=== PATIENT | male | born 1960 | race Caucasian/White ===

== ENCOUNTER 2016-11-07 05:49 | Emergency (ER) | payer OTHER ==
[2016-11-07 06:14] VITALS: TEMP 97.8; BMI 29.9
--- NOTE | 2016-11-07 07:55 | PDOC ---
History of Present Illness - General Chief Complaint: Lightheaded Stated Complaint: DIZZINESS,BLOOD SUGAR PROBLEM Time Seen by Provider: 11/07/16 07:16 History Source: Patient Exam Limitations: No Limitations - History of Present Illness Initial Comments: 11/07/16 08:29 61M with h/f DM2 on Glipizide , HTN on Amlodipine , hypothyroidism on levothyroxine, HCL present with nausea, light-headedness and tingling down left arm since waking up for 3am this morning. He went to work without eating breakfast and when he saw he still felt dizzy ho a worklift he decided to go to the hospital. When he checked his fingerstick blood sugar at 5am before coming in, it was 331. He also describes a tingling sensation down his left arm now just located to the tip of his middle finger, like a pins and needles sensation. He says he didn't take his glipizide yesterday but took two doses of 10mg when he saw that his blood sugar was elevated. He's hypertensive in the 150's although he claims the last time he saw Dr. Hayden , his pcp, 3 weeks ago it was normal. No chest pain, shortness of breath, diaphoresis, vertigo, palpitations blurry vision, vomiting. Past History - Past Medical History Allergies/Adverse Reactions: Allergies Allergy/AdvReac Type Severity Reaction Status Date / Time Penicillins Allergy Verified 11/07/16 08:20 Home Medications: Ambulatory Orders Amlodipine Besylate 5 mg PO HS 11/07/16 Atorvastatin Ca [Lipitor] 20 mg PO HS 11/07/16 Gabapentin 600 mg PO DAILY 11/07/16 Glipizide 10 mg PO BID 11/07/16 Diabetes: Yes HTN: Yes Hypercholesterolemia: Yes - Psycho/Social/Smoking Cessation Hx Suicidal Ideation: No Smoking History: Never smoked Have you smoked in the past 12 months: No Information on smoking cessation initiated: No Hx Alcohol Use: No Drug/Substance Use Hx: No Review of Systems - Review of Systems Constitutional: Yes: Symptoms Reported, See HPI HEENTM: No: Symptoms Reported Respiratory: No: Symptoms reported Cardiac (ROS): No: Symptoms Reported ABD/GI: No: Symptoms Reported : No: Symptoms Reported Musculoskeletal: Yes: Muscle Pain ("in the back for a couple days") Neurological: Yes: Symptoms reported, See HPI *Physical Exam - Vital Signs Last Vital Signs Temp Pulse Resp BP Pulse Ox 97.8 F 65 16 155/97 100 11/07/16 06:12 11/07/16 06:12 11/07/16 06:12 11/07/16 06:12 11/07/16 06:12 - Physical Exam General Appearance: Yes: Nourished, Appropriately Dressed. No: Apparent Distress HEENT: positive: EOMI, PIPER Neck: positive: Trachea midline, Normal Thyroid, Supple. negative: Tender Respiratory/Chest: positive: Lungs Clear, Normal Breath Sounds. negative: Chest Tender, Respiratory Distress Cardiovascular: positive: Regular Rhythm, Regular Rate, S1, S2 Vascular Pulses: Carotid (R): 2+, Carotid (L): 2+, Dorsalis-Pedis (R): 2+, Doralis-Pedis (L): 2+ Gastrointestinal/Abdominal: positive: Normal Bowel Sounds, Soft. negative: Tender Extremity: positive: Normal Capillary Refill, Normal Inspection. negative: Pedal Edema Integumentary: positive: Normal Color, Warm, Other (Facial Rosacea). negative: Jaundice, Cold, Clammy Neurologic: positive: porcelain waxer II-XII NML intact, Fully Oriented, Alert, Normal Mood/ Affect, Normal Response, Motor Strength 5/5 ED Treatment Course - LABORATORY CBC & Chemistry Diagram: 11/07/16 08:18 11/07/16 08:18 Medical Decision Making - Medical Decision Making 11/07/16 09:05 56M with pmh of DM2, HTN and HCL presenting with light-headedness, nausea and LUE tingling. EKG: normal CBC, CMP: pending Cardiac enzymes pending UA pending. r/o: cardiac event 11/07/16 11:38 [id number], tsh:4.35 UA + for ketones and glucose Patient given 1L bolus NS 11/07/16 12:27 Repeat glucose after fluids:221 Waiting for second set of troponins. 11/07/16 14:37 Second set of troponins negative. 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 Patient agreed. *DC/Admit/Observation/Transfer Diagnosis at time of Disposition: Hyperglycemia, Hypothyroid neuropathy - Discharge Dispostion Condition at time of disposition: Improved - Referrals Referrals: Marcial Hayden [Primary Care Provider] - Mera Santiago [Non Staff, Medical] - - Patient Instructions Printed Discharge Instructions: Sugar-Sweetened Fruit Drinks Linked to Increased Chance of Type 2 Diabetes , Lifestyle Changes as Effective as Drugs in Preventing Progression to Diabet, Complications of Type 2 Diabetes Print Language: [email or web address] - Post Discharge Activity Work/School Note: Back to Work
[2016-11-07 08:30] LABS: BASOPHIL 0.7 % (0-2.0); EOSINOPHIL 0.6 % (0-4.5); MCHC 33.9 g/dl (32.0-35.9); MEAN CELL VOLUME 82.7 fl (80-96); MEAN PLT VOLUME 8.1 fl (7.5-11.1); NEUTROPHILS 76.2 % (42.8-82.8); PLATELET COUNT 262 K/MM3 (134-434); RDW 13.7 % (11.9-15.9); WHITE BLOOD COUNT 8.9 K/mm3 (4.0-10.0)
[2016-11-07 09:00] LABS: ALBUMIN 3.6 g/dl (3.4-5.0); ANION GAP 8 (8-16); BILIRUBIN,TOTAL 0.5 mg/dL (0.2-1.0); CALCIUM 9.1 mg/dL (8.5-10.1); CO2 26 mmol/L (21-32); CREATININE 0.8 mg/dL (0.7-1.3); SGOT/AST 11 U/L (15-37); SGPT/ALT 21 U/L (12-78)
[2016-11-07 09:01] LABS: URINE APPEARANCE CLEAR; URINE BILIRUBIN NEGATIVE (NEGATIVE); URINE BLOOD NEGATIVE (NEGATIVE); URINE COLOR LTYELLOW; URINE GLUCOSE (UA) 3+ (NEGATIVE); URINE KETONE 1+ (NEGATIVE); URINE LEUK ESTERASE NEGATIVE (NEGATIVE); URINE NITRITE NEGATIVE (NEGATIVE); URINE PROTEIN NEGATIVE (NEGATIVE); URINE UROBILINOGEN NEGATIVE mg/dL (0.2-1.0)
[2016-11-07 09:08] LABS: ALK PHOS 124 U/L (45-117); THYROID STIMULATING HORMONE 4.35 uIU/ml (0.358-3.74)
--- NOTE | 2016-11-07 09:40 | PDOC ---
Attending Attestation - Resident Resident Name: Zain Alvarado - ED Attending Attestation I have performed the following: I have examined & evaluated the patient, The case was reviewed & discussed with the resident, I agree w/resident's findings & plan, Exceptions are as noted - HPI HPI: 11/07/16 10:01 The patient is a 56 year old male, with a significant past medical history of DM , HTN, and high cholesterol, who presents to the emergency department with dizziness since 3am this morning. The patient reports waking up this morning feeling lightheaded. Denies room-spinning sensation. He reports as the morning progressed his dizziness worsened. He relates while at work having sensations of fainting, but denies any LOC since the onset of his symptoms. Upon ED arrival he reports his symptoms have mostly resolved and denies any complaints of significant pain. He also notes during his dizziness episode having a blood sugar of 331, after having a finger stick reading at home. He also reports a "tingling" sensation in his left arm and both feet but denies any numbness or weakness in any extremity. Pt states that his blood sugars have been poorly controlled recently. He admits to not checking his sugar regularly. The last time it was checked before today was 2 weeks ago, when it was in the 200s. Pt is currently only on glipizide. Pt endorses increased urinary frequency but no increased thirst. He denies any recent fevers, chills, or headache. He denies any recent nausea, vomit, diarrhea or constipation. He denies any recent chest pain or shortness of breath. He denies any recent dysuria, urgency or hematuria. Allergies: NKA Past surgical history: None reported. Social History: Former smoker. Denies EtOH use and recreational drug use. 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 Mera Santiago [phone] - Physicial Exam PE: 11/07/16 10:04 "GENERAL: Awake, alert, and fully oriented, in no acute distress HEAD: No signs of trauma EYES: PERRLA, EOMI, sclera anicteric, conjunctiva clear ENT: Auricles normal inspection, hearing grossly normal, nares patent, oropharynx clear without exudates. Moist mucosa NECK: Normal ROM, supple, no lymphadenopathy, JVD, or masses LUNGS: Breath sounds equal, clear to auscultation bilaterally. No wheezes, and no crackles HEART: Regular rate and rhythm, normal S1 and S2, no murmurs, rubs or gallops ABDOMEN: Soft, nontender, normoactive bowel sounds. No guarding, no rebound. No masses EXTREMITIES: Normal range of motion, no edema. No clubbing or cyanosis. No cords, erythema, or tenderness NEURO: The patient is oriented x3. Cranial nerves II through XII are intact. No nystagmus The upper extremities are 5 over 5 in all muscle groups. The lower extremities are 5 over 5 in all muscle groups. Sensation is intact to light touch throughout. Neg romberg. Wefism-wvddij-rdoc is normal in both upper extremities. Hvod-whsi-ifku is normal in both lower extremities. 2+ and symmetric in the upper. Tandem gait is normal. SKIN: Warm, Dry, normal turgor, no rashes or lesions noted. " - Medical Decision Making 11/07/16 10:05 56 M with DM, HTN presenting to ER with lightheadedness in the context of poorly controlled blood sugar. Pt with stable vitals in ER, but likely has some component of volume depletion 2/2 chronic hyperglycemia. Pt's "dizziness" is unlikely to be primary neurological, as he does not have any focal neuro deficits with normal cerebellar function. Pt with no evidence of ischemia on EKG and never had chest pain. However, with complaint of left arm tingling, will cycle trops to r/o ACS. - Labs, trops - VBG, ketones, UA to r/o DKA/HHS - IVF - reassess 11/07/16 14:39 Trop negative x2, fingerstick improved to 200s s/p 1L NS. Pt reassessed. Reports he feels much better. Ambulatory with steady gait. Instructed to f/u with finisher machine for better glucose control. Heart Score/ECG Review - History History: Slightly suspicious - Electrocardiogram EKG: Normal - Age Age: 45-65 - Risk Factors Risk Factors Heart Score: Yes Hx Hypercholesterolemia, Yes Hx Hypertension, Yes Hx Diabetes - Troponin Troponin: </= normal limit - ECG Impressions Comment:: 11/07/16 10:14 EKG is NSR, with no FRACISCO/STDs, no TWIs, intervals wnl, axis wnl
[2016-11-07 09:45] LABS: GLUCOSE,RANDOM 339 mg/dL (74-106)
[2016-11-07] MEDS ORDERED: cloNIDine HCL 0.1 MG TABLET PO ONE (09:57)
[2016-11-07] MEDS ORDERED: SODIUM CHLORIDE 1,000 ML IV STA (09:59)
[2016-11-07 10:01] LABS: CPK 108 IU/L (39-308); TROPONIN I < 0.02 ng/ml (0.00-0.05)
[2016-11-07] MEDS ORDERED: cloNIDine HCL 0.1 MG TABLET ONE (10:26)
[2016-11-07 15:06] VITALS: BP 144/90; PULSE 55
--- NOTE | 2016-11-08 13:40 | EKG ---
Test Reason : Blood Pressure : / mmHG Vent. Rate : 060 BPM Atrial Rate : 060 BPM P-R Int : 180 ms QRS Dur : 094 ms QT Int : 420 ms P-R-T Axes : 040 016 036 degrees QTc Int : 420 ms NORMAL SINUS RHYTHM NORMAL ECG NO PREVIOUS ECGS AVAILABLE Confirmed by ISIDRO ZAPATA MD ([id number]) on 11/08/2016 1:39:53 PM Referred By: Confirmed By:ISIDRO ZAPATA MD
== END 2016-11-07 15:53 | disposition home or self-care (01) ==
LOC: JER 05:49
PROC: 3E0337Z Introduction of Electrolytic and Water Balance Substance into Peripheral Vein, Percutaneous Approach (ICD-10-PCS; principal; 2016-11-07)
DX: E11.65 Type 2 diabetes mellitus with hyperglycemia (principal); I10 Essential (primary) hypertension; E78.00 Pure hypercholesterolemia, unspecified; E03.9 Hypothyroidism, unspecified
CPT/HCPCS: 36415; 80053; 81003; 82009; 84443; 84484; 85025; 93005; 93010; 99283-25

== ENCOUNTER 2020-12-20 11:08 | Observation (INO) | payer OTHER ==
[2020-12-20 11:45] VITALS: BMI 30.2
[2020-12-20 12:15] LABS: BASO % 0.2 % (0-2.0); EOS % 0.1 % (0-4.5); HEMATOCRIT 35.8 % (35.4-49); HEMOGLOBIN 12.4 GM/dL (11.7-16.9); LYMPH % 11.5 % (8-40); MCH 28.1 pg (25.7-33.7); MCHC 34.6 g/dl (32.0-35.9); MEAN CELL VOLUME 81.3 fl (80-96); MEAN PLT VOLUME 7.3 fl (7.5-11.1); MONO % 6.9 % (3.8-10.2); NEUT % 81.3 % (42.8-82.8); PLATELET COUNT 248 10^3/uL (134-434); RDW 13.7 % (11.9-15.9); WHITE BLOOD COUNT 9.8 K/mm3 (4.0-10.0)
[2020-12-20 12:19] LABS: INR 1.17 (0.83-1.09); PROTHROMBIN TIME (PATIENT) 14.4 SEC (9.7-13.0)
[2020-12-20 12:22] LABS: ACTIVATED PTT 30.1 SECONDS (25.2-36.5)
[2020-12-20 13:12] LABS: CHLORIDE 102 mmol/L (98-107); SODIUM 137 mmol/L (136-145)
[2020-12-20 13:15] LABS: ALBUMIN 2.9 g/dl (3.4-5.0); ANION GAP 10 MMOL/L (8-16); CALCIUM 7.7 mg/dL (8.5-10.1); CO2 24 mmol/L (21-32)
[2020-12-20 13:16] LABS: GLUCOSE,RANDOM 149 mg/dL (74-106)
[2020-12-20 13:17] LABS: BLOOD UREA NITROGEN 9.1 mg/dL (7-18)
[2020-12-20 13:18] LABS: SGOT/AST 23 U/L (15-37); SGPT/ALT 22 U/L (13-61); TRIGLYCERIDES 133 mg/dL (0-150)
[2020-12-20 13:19] LABS: CHOLESTEROL 135 mg/dL (50-200)
[2020-12-20 13:20] LABS: BILIRUBIN,TOTAL 0.6 mg/dL (0.2-1); LDL CHOLESTEROL (ONLY SJRH) 83 mg/dL (5-100); TOT PROT 6.8 g/dl (6.4-8.2)
[2020-12-20 13:21] LABS: ALK PHOS 69 U/L (45-117); HDL CHOLESTEROL 26 mg/dL (40-60)
[2020-12-20] MEDS ORDERED: LACTATED RINGERS SOLUTION 1,000 ML IV STA (18:52)
[2020-12-20] MEDS ORDERED: ACETAMINOPHEN 325 MG TABLET (FP) PO PRN (18:52)
[2020-12-20 20:31] LABS: PH,URINE 6.5 (5.0-8.0); URINE APPEARANCE CLEAR; URINE BILIRUBIN NEGATIVE (NEGATIVE); URINE COLOR YELLOW; URINE GLUCOSE (UA) NEGATIVE (NEGATIVE); URINE KETONE 1+ (NEGATIVE); URINE LEUK ESTERASE NEGATIVE (NEGATIVE); URINE NITRITE NEGATIVE (NEGATIVE); URINE PROTEIN 1+ (NEGATIVE)
[2020-12-20 20:46] LABS: EPI CELLS 10.7 /uL (0-25.1); HYALINE CASTS 1.39 /uL (0-3.1); URINE BACTERIA 30.7 /uL (0-1359); URINE WBC 15.8 /uL (0-25.8)
[2020-12-20] MEDS: INSULIN SLIDING SCALE (NOVOLOG) 1 VIAL SQ SCH (22:56)
[2020-12-21 05:32] LABS: BASO % 0.4 % (0-2.0); EOS % 0.4 % (0-4.5); HEMATOCRIT 33.9 % (35.4-49); HEMOGLOBIN 11.8 GM/dL (11.7-16.9); MCH 28.2 pg (25.7-33.7); MCHC 34.8 g/dl (32.0-35.9); MEAN CELL VOLUME 80.9 fl (80-96); MEAN PLT VOLUME 7.2 fl (7.5-11.1); MONO % 10.1 % (3.8-10.2); NEUT % 65.1 % (42.8-82.8); PLATELET COUNT 257 10^3/uL (134-434); RBC 4.19 M/mm3 (4.00-5.60); RDW 13.4 % (11.9-15.9); WHITE BLOOD COUNT 6.9 K/mm3 (4.0-10.0)
[2020-12-21 05:57] LABS: BLOOD UREA NITROGEN 7.5 mg/dL (7-18); CALCIUM 7.5 mg/dL (8.5-10.1)
[2020-12-21 05:58] LABS: ALBUMIN 2.6 g/dl (3.4-5.0); MAGNESIUM 2.2 mg/dL (1.8-2.4)
[2020-12-21 06:01] LABS: CREATININE 0.7 mg/dL (0.55-1.3); PHOSPHOROUS 3.1 mg/dL (2.5-4.9)
[2020-12-21 06:02] LABS: BILIRUBIN,TOTAL 0.5 mg/dL (0.2-1); TOT PROT 6.2 g/dl (6.4-8.2)
[2020-12-21] MEDS ORDERED: LEVOTHYROXINE NA 125 MCG TABLET (FP) PO SCH (07:00)
[2020-12-21] MEDS ORDERED: glipiZIDE 10 MG TABLET (FP) PO SCH ×2 (07:00→10:00)
[2020-12-21] MEDS ORDERED: LEVOTHYROXINE NA 25 MCG TABLET (FP) ONE (08:21)
[2020-12-21] MEDS: INSULIN SLIDING SCALE (NOVOLOG) 1 VIAL SQ SCH ×2 (08:28→12:00)
[2020-12-21] MEDS ORDERED: glipiZIDE 5 MG TABLET (FP) ONE (08:30)
[2020-12-21] MEDS ORDERED: LISINOPRIL 20 MG TABLET PO SCH (10:00)
[2020-12-21 12:11] VITALS: BP 144/74; TEMP 98.6
[2020-12-21 12:29] VITALS: PULSE 63
== END 2020-12-21 15:54 | disposition home or self-care (01) ==
LOC: JER 11:08 → JERBED 11:48 → J4S 12-21 11:12
PROVIDERS: ADMIT Internal Medicine; ATTEND Internal Medicine
PROC: 3E0337Z Introduction of Electrolytic and Water Balance Substance into Peripheral Vein, Percutaneous Approach (ICD-10-PCS; principal; 2020-12-20)
DX: R56.9 Unspecified convulsions (principal); R42 Dizziness and giddiness; R53.1 Weakness; E86.9 Volume depletion, unspecified; G23.8 Other specified degenerative diseases of basal ganglia; I10 Essential (primary) hypertension; E11.9 Type 2 diabetes mellitus without complications; E78.5 Hyperlipidemia, unspecified; E03.9 Hypothyroidism, unspecified; Z79.84 Long term (current) use of oral hypoglycemic drugs; Z88.0 Allergy status to penicillin
CPT/HCPCS: 36415; 70450-TC; 70551-TC; 71045-TC-FY; 80053; 80061; 81003; 82550; 82962; 83036; 83735; 84100; 84443; 84484; 85025; 85610; 85730; 86850; 86900; 86901; 87804; 93005; 93010; 93880-TC; 96360; 99285-25; C9803; G0378; U0003; U0005

== ENCOUNTER 2021-02-22 10:57 | Emergency (ER) | payer OTHER ==
[2021-02-22 11:02] VITALS: BP 158/80; PULSE 71; TEMP 98; BMI 30.7
[2021-02-22] MEDS ORDERED: FLUORESCEIN NA 1 EA STRIP ONE (11:53)
== END 2021-02-22 12:03 | disposition home or self-care (01) ==
LOC: JERFT 10:57 → JER 10:57 → JERFT 12:03
DX: H11.32 Conjunctival hemorrhage, left eye (principal)
CPT/HCPCS: 99283-25

== ENCOUNTER 2023-05-12 18:54 | Inpatient (IN) | payer OTHER ==
[2023-05-12 19:22] VITALS: BMI 25.7
[2023-05-12] MEDS: SODIUM CHLORIDE 1,000 ML IV STA (19:56)
[2023-05-12] MEDS ORDERED: ONDANSETRON 4 MG/2 ML VIAL ONE (20:04)
[2023-05-12] MEDS ORDERED: ACETAMINOPHEN INJECTION 100 ML IVPB ONE (20:04)
[2023-05-12] MEDS ORDERED: FAMOTIDINE 20 MG/50 ML IVPB 20 MG/50 ML MG IVPB ONE (20:04)
[2023-05-12] MEDS: FAMOTIDINE 20 MG/50 ML IVPB 20 MG/50 ML MG IVPB ONE (20:11)
[2023-05-12] MEDS: ACETAMINOPHEN 1000 MG/100 ML BAG IVPB ONE (20:11)
[2023-05-12] MEDS: ONDANSETRON 4 MG/2 ML VIAL IVPUSH ONE (20:11)
[2023-05-12 20:18] LABS: VENOUS BASE EXCESS -1.3 mmol/L (-2-2); VENOUS O2 SATURATION 22.8 % (70-80); VENOUS PCO2 42.1 mmHg (38-52); VENOUS PH 7.372 (7.310-7.410)
[2023-05-12 20:22] LABS: BASO % 0.3 % (0-2.0); HEMATOCRIT 27.4 % (35.4-49); HEMOGLOBIN 8.6 GM/dL (11.7-16.9); LYMPH % 7.2 % (8-40); MCH 22.9 pg (25.7-33.7); MCHC 31.5 g/dl (32.0-35.9); MEAN CELL VOLUME 72.9 fl (80-96); MEAN PLT VOLUME 7.7 fl (7.5-11.1); NEUT % 86.5 % (42.8-82.8); PLATELET COUNT 311 10^3/uL (134-434); RBC 3.76 M/mm3 (4.00-5.60)
[2023-05-12 20:28] LABS: INR 1.12 (0.83-1.09)
[2023-05-12 20:31] LABS: ACTIVATED PTT 29.5 SECONDS (25.2-36.5)
[2023-05-12 20:32] LABS: POTASSIUM 4.1 mmol/L (3.5-5.1)
[2023-05-12 20:33] LABS: ALBUMIN 2.4 g/dl (3.4-5.0); BLOOD UREA NITROGEN 10.5 mg/dL (7-18); CALCIUM 7.6 mg/dL (8.5-10.1)
[2023-05-12] MEDS ORDERED: DIPHTH,PERTUSS(ACELL),TET 0.5 ML DISP.SYRIN IM ONE (20:33)
[2023-05-12 20:36] LABS: CREATININE 0.9 mg/dL (0.55-1.3)
[2023-05-12 20:38] LABS: BILIRUBIN,TOTAL 0.2 mg/dL (0.2-1); TOT PROT 5.3 g/dl (6.4-8.2)
[2023-05-12] MEDS: DIPHTH,PERTUSS(ACELL),TET 0.5 ML DISP.SYRIN IM ONE (20:50)
[2023-05-12 20:56] LABS: LACTIC ACID 4.1 mmol/L (0.4-2.0)
[2023-05-12 21:14] LABS: ANISOCYTOSIS 2+; MACROCYTOSIS 0; OVALOCYTE 2+
[2023-05-12] MEDS: LACTATED RINGERS SOLUTION 1000 ML INFUS.BAG IV ONE (22:52)
[2023-05-13 00:53] LABS: LACTIC ACID 2.3 mmol/L (0.4-2.0)
[2023-05-13 02:40] LABS: RETICULOCYTES 1.91 % (0.5-1.5)
[2023-05-13] MEDS ORDERED: PANTOPRAZOLE SODIUM 40 MG VIAL ONE ×2 (02:51→08:43)
[2023-05-13] MEDS ORDERED: VANCOMYCIN 1 GRAM (PRE-DOCKED) 1,000 MG/250 ML BAG IVPB ONE (02:51)
[2023-05-13] MEDS ORDERED: MEROPENEM 1 GM VIAL (RESTRICTED TO ID) IVPB ONE ×2 (02:51→09:16)
[2023-05-13] MEDS: INSULIN ASPART SLIDING SCALE (NOVOLOG) 1 VIAL SQ SCH (03:21)
[2023-05-13] MEDS: ALBUTEROL SO4 HFA INHALER IH SCH (03:21)
[2023-05-13] MEDS: PANTOPRAZOLE SODIUM 40 MG VIAL IVPUSH SCH (03:21)
[2023-05-13] MEDS: MEROPENEM 1 GM in DEXTROSE 5%-WATER 100 ML IVPB ONE ×2 (03:21→09:27)
[2023-05-13] MEDS: SODIUM CHLORIDE 1,000 ML IV SCH (03:21)
[2023-05-13] MEDS ORDERED: ALBUTEROL SO4 HFA INHALER IH PRN (03:47)
[2023-05-13] MEDS: VANCOMYCIN 1 GRAM (PRE-DOCKED) 1,000 MG/250 ML BAG IVPB SCH (04:30)
[2023-05-13 05:49] LABS: HEMOGLOBIN 7.5 GM/dL (11.7-16.9); MCH 23.4 pg (25.7-33.7); MCHC 32.6 g/dl (32.0-35.9); MEAN CELL VOLUME 71.8 fl (80-96); MEAN PLT VOLUME 7.1 fl (7.5-11.1); PLATELET COUNT 253 10^3/uL (134-434); RDW 15.6 % (11.9-15.9); WHITE BLOOD COUNT 10.4 K/mm3 (4.0-10.0)
[2023-05-13 06:08] LABS: POTASSIUM 4.1 mmol/L (3.5-5.1)
[2023-05-13 06:10] LABS: CALCIUM 7.6 mg/dL (8.5-10.1)
[2023-05-13 06:11] LABS: ALBUMIN 2.2 g/dl (3.4-5.0); BLOOD UREA NITROGEN 12.1 mg/dL (7-18)
[2023-05-13 06:14] LABS: CREATININE 0.6 mg/dL (0.55-1.3); PHOSPHOROUS 3.4 mg/dL (2.5-4.9)
[2023-05-13 06:16] LABS: BILIRUBIN,TOTAL 0.1 mg/dL (0.2-1); TOT PROT 4.8 g/dl (6.4-8.2)
[2023-05-13 07:35] LABS: ANISOCYTOSIS 3+; MACROCYTOSIS 0; OVALOCYTE 1+; ROULEAU 1+
[2023-05-13] MEDS ORDERED: LEVOTHYROXINE NA 25 MCG TABLET (FP) ONE (07:45)
[2023-05-13] MEDS ORDERED: LEVOTHYROXINE NA 100 MCG TABLET (FP) ONE (07:45)
[2023-05-13] MEDS: LEVOTHYROXINE NA 125 MCG TABLET (FP) PO SCH (07:52)
[2023-05-13 07:57] LABS: URINE APPEARANCE CLEAR; URINE BILIRUBIN NEGATIVE (NEGATIVE); URINE COLOR YELLOW; URINE GLUCOSE (UA) NEGATIVE (NEGATIVE); URINE KETONE NEGATIVE (NEGATIVE); URINE LEUK ESTERASE NEGATIVE (NEGATIVE); URINE NITRITE NEGATIVE (NEGATIVE); URINE PROTEIN NEGATIVE (NEGATIVE); URINE UROBILINOGEN 0.2 mg/dL (0.2-1.0)
[2023-05-13] MEDS: BUDESONIDE/FORMETEROL FUMARATE 160/4.5 mcg INHALER IH SCH (09:28)
[2023-05-13] MEDS: VANCOMYCIN/WATER FOR INJ (PEG) 1,000 MG/200 ML BAG IVPB SCH (16:29)
[2023-05-13] MEDS: PANTOPRAZOLE 40 MG TABLET PO SCH (23:06)
[2023-05-14 07:17] LABS: HEMATOCRIT 23.9 % (35.4-49); HEMOGLOBIN 7.6 GM/dL (11.7-16.9); MCH 23.3 pg (25.7-33.7); MCHC 31.9 g/dl (32.0-35.9); MEAN CELL VOLUME 72.9 fl (80-96); MEAN PLT VOLUME 7.1 fl (7.5-11.1); PLATELET COUNT 245 10^3/uL (134-434); RBC 3.28 M/mm3 (4.00-5.60); RDW 15.6 % (11.9-15.9); WHITE BLOOD COUNT 7.5 K/mm3 (4.0-10.0)
[2023-05-14 07:19] LABS: POTASSIUM 4.1 mmol/L (3.5-5.1)
[2023-05-14 07:25] LABS: CALCIUM 8.1 mg/dL (8.5-10.1)
[2023-05-14 07:26] LABS: ALBUMIN 2.5 g/dl (3.4-5.0); BLOOD UREA NITROGEN 8.9 mg/dL (7-18); MAGNESIUM 1.9 mg/dL (1.8-2.4)
[2023-05-14 07:27] LABS: PHOSPHOROUS 4.2 mg/dL (2.5-4.9)
[2023-05-14 07:29] LABS: BILIRUBIN,TOTAL 0.2 mg/dL (0.2-1); CREATININE 0.6 mg/dL (0.55-1.3); TOT PROT 5.1 g/dl (6.4-8.2)
[2023-05-14 08:54] LABS: ANISOCYTOSIS 0; MACROCYTOSIS 0
[2023-05-14] MEDS: VANCOMYCIN/WATER FOR INJ (PEG) 1,000 MG/200 ML BAG IVPB ONE (12:00)
[2023-05-14] MEDS: MEROPENEM 1 GM in DEXTROSE 5%-WATER 100 ML IVPB ONE (20:00)
[2023-05-15] MEDS: VANCOMYCIN/WATER FOR INJ (PEG) 1,000 MG/200 ML BAG IVPB SCH (00:19)
[2023-05-15] MEDS ORDERED: INSULIN (NOVOLOG) ASPART 100 UNITS/ML 10ML VIAL ONE (05:17)
[2023-05-15 06:53] LABS: HEMATOCRIT 26.9 % (35.4-49); HEMOGLOBIN 8.8 GM/dL (11.7-16.9); MCH 24.2 pg (25.7-33.7); MCHC 32.8 g/dl (32.0-35.9); MEAN CELL VOLUME 73.7 fl (80-96); MEAN PLT VOLUME 7.4 fl (7.5-11.1); PLATELET COUNT 301 10^3/uL (134-434); RBC 3.65 M/mm3 (4.00-5.60); WHITE BLOOD COUNT 8.1 K/mm3 (4.0-10.0)
[2023-05-15 07:16] LABS: POTASSIUM 4.2 mmol/L (3.5-5.1)
[2023-05-15 07:19] LABS: ALBUMIN 2.9 g/dl (3.4-5.0); BLOOD UREA NITROGEN 10.5 mg/dL (7-18); CALCIUM 8.4 mg/dL (8.5-10.1); MAGNESIUM 2.1 mg/dL (1.8-2.4)
[2023-05-15 07:22] LABS: CREATININE 0.7 mg/dL (0.55-1.3)
[2023-05-15 07:24] LABS: BILIRUBIN,TOTAL 0.3 mg/dL (0.2-1); TOT PROT 5.8 g/dl (6.4-8.2)
[2023-05-15 08:38] LABS: ANISOCYTOSIS 0; MACROCYTOSIS 0
[2023-05-15 13:25] VITALS: BP 110/77; PULSE 54; RESP 16; TEMP 97.7
== END 2023-05-15 14:45 | disposition home or self-care (01) | DRG 312 ==
LOC: JER 18:54 → JERBED 22:13 → J4W 05-13 14:00
PROVIDERS: ADMIT Internal Medicine; ATTEND Internal Medicine
PROC: 0DJ08ZZ Inspection of Upper Intestinal Tract, Via Natural or Artificial Opening Endoscopic (ICD-10-PCS; principal; 2023-05-13 11:30)
DX: R55 Syncope and collapse (principal); K92.0 Hematemesis; C85.99 Non-Hodgkin lymphoma, unspecified, extranodal and solid organ sites; E87.20 Acidosis, unspecified; R78.81 Bacteremia; E11.9 Type 2 diabetes mellitus without complications; I10 Essential (primary) hypertension; E03.9 Hypothyroidism, unspecified; F10.10 Alcohol abuse, uncomplicated; Z88.0 Allergy status to penicillin; K27.9 Peptic ulcer, site unspecified, unspecified as acute or chronic, without hemorrhage or perforation; D50.9 Iron deficiency anemia, unspecified; D72.829 Elevated white blood cell count, unspecified; J45.909 Unspecified asthma, uncomplicated; W18.30XA Fall on same level, unspecified, initial encounter; Y92.099 Unspecified place in other non-institutional residence as the place of occurrence of the external cause; Y99.9 Unspecified external cause status
CPT/HCPCS: 0241U-QW; 36415; 70450-TC; 71045-TC-FY; 72125-TC; 74177-TC; 76705-TC; 80053; 81003; 82272; 82607; 82728; 82746; 82803; 82962; 83540; 83550; 83605; 83735; 84100; 84484; 85025; 85045; 85610; 85730; 86850; 86900; 86901; 87040; 87086; 90715; 93005; 93010; 99285-25; J0131; Q9967